=== PATIENT | female | born 1995 | race Caucasian/White ===

== ENCOUNTER 2022-09-06 17:38 | Inpatient (IN) | payer MEDICAID, SELFPAY ==
[2022-09-06] VITALS (22 sets, daily range): BP systolic 94–123; BP diastolic 56–75; PULSE 73–109; RESP 13–21; TEMP 36.4–37; O2SAT 96–100
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
[2022-09-06 18:26] LABS: Bilirubin Negative (Negative); Blood Negative (Negative); Clarity Clear (Clear); Glucose Negative (Negative); Ketones Negative (Negative); Leukocyte Esterase Negative (Negative); Nitrite Negative (Negative); Specific Gravity <= 1.005 (1.005-1.025); Urobilinogen 0.2 EU/dL (Up TO 0.2); pH 5.5 (5-8)
[2022-09-06 18:40] LABS: *AMPHETAMINES SCREEN URINE Negative (Negative); *BARBITURATES SCREEN URINE Negative (Negative); *BENZODIAZEPINES SCREEN URINE Positive (Negative); Cannabinoids THC Negative (Negative); Cocaine Screen,Urine Negative (Negative); METHADONE URINE SCREEN Negative (Negative); OPIATES URINE SCREEN Negative (Negative); Tricyclic Antidepressants Negative (Negative)
[2022-09-06] MEDS: Normal Saline 1,000 ML 1000 ML IV (18:45)
[2022-09-06 18:53] LABS: Abs Immature Grans 0.06 10^3/uL (0.0-0.06); Absolute Basophil Count 0.09 10^3/uL (0.0-0.2); Absolute Eosinophil Count 0.04 10^3/uL (0.0-0.7); Absolute Lymphocyte Count 2.19 10^3/uL (1.2-3.4); Absolute Monocyte Count 0.48 10^3/uL (0.1-0.8); Absolute Neutrophil Count 4.51 10^3/uL (1.2-6.7); Basophils % 1.2; Eosinophils % 0.5; HCT 40.2 % (36.0-46.0); HGB 13.3 g/dL (11.2-15.7); Immature Grans % 0.8; Lymphocytes % 29.7; MCH 33.3 pg (27.0-33.0); MCHC 33.1 % (32.0-36.0); MCV 101 fL (80-95); MPV 8.5 fL (8.0-11.0); Monocytes % 6.5; Neutrophils % 61.3; Platelet Count 253 10^3/uL (130-400); RDW 12.4 % (11.7-14.6); RDW-SD 46.5 fL; WBC 7.37 10^3/uL (4.4-10.8)
[2022-09-06 19:06] LABS: Lipase 158 U/L (73-393)
[2022-09-06 19:20] LABS: ALT 18 U/L (14-59); AST 32 U/L (15-37); Albumin 4.6 g/dL (3.4-5.0); Alkaline Phosphatase 81 U/L (46-116); Anion Gap 7.2 mmol/L (3-11); BUN 5 mg/dL (7-18); Bilirubin, Total 0.2 mg/dL (0.2-1.0); CO2 28.8 mmol/L (21.0-32.0); CREATININE 0.6 mg/dL (0.55-1.02); Calcium 9.6 mg/dL (8.5-10.1); Chloride 107 mmol/L (98-107); ETHANOL BLOOD 259.8 mg/dL (<10); Estimated GFR 124.53 (mL/min/1.73m2); Glucose 89 mg/dL (74-106); Potassium 3.8 mmol/L (3.5-5.1); Sodium 143 mmol/L (136-145); TSH (W/Ref FT4) 2.35 uIU/mL (0.36-3.74); Total Protein 8.6 g/dL (6.4-8.2)
[2022-09-06 19:32] LABS: Salicylate < 2.8 mg/dL (<2.8)
[2022-09-06 19:33] LABS: Acetaminophen < 2 ug/mL (10-30)
[2022-09-06 19:56] LABS: Source Nasal/Nares
[2022-09-06 20:26] LABS: COVID-19 PCR Negative (Negative)
[2022-09-06] MEDS: PHENobarbital 100 MG in Normal Saline 50 ML IVPB (20:52)
--- NOTE | 2022-09-06 22:27 | W.PM.HP.N ---
Date of service: 09/06/22 Time of Service: 22:28 Assessment and Plan Assessment and plan (1) Alcohol withdrawal: Status: Acute Assessment and plan: Hailey had benzodiazepines from Librium taper given last week but hasn't taken in several days. She describes a history of significant withdrawal syndrome and possible DTs. Given this, she has been started on IV phenobarbitol protocol. She looked confortable at the time of my assessment. Monitor and dose per protocol. (2) Alcohol use disorder, severe, dependence: Status: Acute Assessment and plan: Hailey would like to persue treatment after withdrawal is treated. She was considering [facility] but also the IOP program at [facility]. We did discuss medical options as well. Should plan for transition once out of acute withdrawal. (3) Suicidal ideation: Status: Acute Assessment and plan: SI reported on admission but she clearly denies this in my interview with her. Even so, I think crisis team assessment is appropriate once she is medically cleared. (4) Mood disorder: Status: Acute Assessment and plan: She is seeing psychiatric provider through [facility]. I'm not sure if diagnosis is Bipolar or unipolar depression with anxiety. Complicated by alcohol use disorder. continue lamotrigine and SSIR, monitor for rash (has only been a few days on the medication) (5) Back pain: Status: Acute Assessment and plan: Hailey has back pain and abdominal tenderness. CT from the pat week was reassuring. I don't think the renal stone is what is causing her symptoms as small and not obstruting. Given toradol x 1, can use ibuprofen prn starting tomorrow. LFTs and lipase reassuring. (6) Migraine with aura: Status: Acute Assessment and plan: Continue magnesium daily and sumatriptan prn if toradol not working. (7) GERD (gastroesophageal reflux disease): Status: Chronic Assessment and plan: Conitnue PPI, work on EtOH. (8) Smoker: Status: Acute Assessment and plan: NRT prn for now (9) DVT prophylaxis: Status: Acute Assessment and plan: LMWH (10) Discharge planning issues: Status: Acute Assessment and plan: Hailey is in the ICU for phenobarbitol protocol with monitoring. MH evaluation when medically clear. History of Present Illness History of Present Illness Chief Complaint: alcohol use, suicidal ideation Narrative: 27 yo F with history of severe alcohol use disorder, history of alcoholic pancreatitis, depression vs bipolar affective disorder who presented with local law enforcement today after being served with a warrant for poor judgement and insight, self harm, concern for suicidal ideation. She reports a history of chronic heavy alcohol use for the past 4 years with mulpitle episodes of medical detoxification. She was seen 6 days ago in the [facility] [place] ED for abdominal pain and alcohol intoxication. She had CT A/P that was reassuring other than a 2mm non-obstructive stone in the left kidney. She was given a chlorodiazapoxide/Librium taper for home use with plan to go to [facility], but had to postpone that and felt like the Librium made her not herself and more angry and irritable. She started drinking again yesterday and had 9x24oz beers. Today she has 3x24oz and 3x12oz beers before being brought in. Currently, she endorses depression but denies suicidal ideation. She states she burned herself because she was upset, but didn't want to end her life. She states she is taking fluoxetine as well as a new Rx for lamotrigine, which she feels like is helping. She complains of a migraine headache that is worst behind her left eye but extends to bilateral nuchal area. She also has low back pain, first indicating her left, then stating her right hurt more. Sumitriptan or toradol usually work for her. Review of Systems Constitutional Constitutional: Denies anorexia, Denies chills, Denies fever(s), Reports lethargy and Denies weakness Eyes Eyes: Denies change in vision, Denies irritation, Denies loss of vision and Reports photophobia ENT Ears, Nose, Mouth, and Throat: Denies dizziness, Denies nasal congestion, Denies nasal discharge and Denies sore throat Comments: recent cold, recovered Cardiovascular Cardiovascular: Denies chest pain, Denies leg edema, Denies palpitations and Denies dyspnea Respiratory Respiratory: Denies excessive phlegm production, Denies dyspnea and Denies wheezing Gastrointestinal Gastrointestinal: Reports abdominal pain, Denies melena, Denies hematochezia, Reports heartburn, Denies diarrhea, Denies nausea and Denies vomiting Genitourinary Genitourinary: Denies hematuria, Denies dysuria and Denies urinary incontinence Musculoskeletal Musculoskeletal: Reports arthralgias (recent left shoulder dyslocation, no pain now) and Denies muscle weakness Integumentary/Breasts Skin/Breast: Denies rash and Denies skin ulcer Neurologic Neurologic: Denies confusion, Denies dizziness, Denies loss of vision, Denies sensory deficit and Denies weakness Psychiatric Psychiatric: Denies confusion, Reports depression, Reports panic attacks and Denies hallucinations (history of hallucinations with withdrawal, not now) Endocrine Endocrine: Denies palpitations Hematologic/Lymphatic Hematologic/Lymphatic: Denies easy bleeding Allergic/Immunologic Allergic/Immunologic: Denies wheezing PFSH All Active Problems (Updated 09/06/22 @ 23:03 by Zeke Borjas) Smoker (Acute) Migraine with aura (Acute) Discharge planning issues (Acute) GERD (gastroesophageal reflux disease) (Chronic) DVT prophylaxis (Acute) Back pain (Acute) Left nephrolithiasis (Acute) Mood disorder (Acute) Alcohol use disorder, severe, dependence (Acute) Alcohol withdrawal (Acute) Suicidal ideation (Acute) Medical History (Updated 09/06/22 @ 23:03 by Zeke Borjas) History of pancreatitis Surgical History (Updated 09/06/22 @ 22:47 by Zeke Borjas) History of therapeutic Family History (Updated 09/06/22 @ 22:45 by Zeke Borjas) Father Alcohol use disorder Sister Alcohol use disorder Mother Depression bipolar Social History (Updated 09/06/22 @ 23:59 by Zeke Borjas) Smoking/Tobacco Use Status: Current every day Tobacco Type: cigarettes Quit status: not considering quitting Smoking risk assessment performed?: Yes Alcohol Intake: current Substance use type: does not use Household members: family Education Level: high school Pets and animals: Yes Pets and animals: cat(s) Sexually active: No Additional Social history: Lives with Mother in [place], [place]. Recently ended relationship with [facility]. Meds Allergies and Home Medications Allergies Allergy/AdvReac Type Severity Reaction Status Date / Time sulfamethoxazole Allergy Intermediate Skin Rash Unverified 09/06/22 19:29 [From Bactrim] trimethoprim [From Bactrim] Allergy Intermediate Skin Rash Unverified 09/06/22 19:29 Home Medications Medication Instructions Recorded Confirmed Type hydroxyzine HCl 25 mg tablet 25 mg PO 1XD 09/06/22 09/06/22 History lamotrigine 25 mg tablet 25 tab PO 1XD 09/06/22 09/06/22 History magnesium gluconate 27 mg 500 mg PO 1XD 09/06/22 09/06/22 History magnesium (500 mg) tablet melatonin 5 mg tablet 5 mg PO 1XD 09/06/22 09/06/22 History omeprazole 40 mg capsule,delayed 40 mg PO 1XD 09/06/22 09/06/22 History release sumatriptan succinate 100 mg tablet 100 tab PO 1XD 09/06/22 09/06/22 History Exam Narrative Exam Narrative: GEN: Alert and oriented, pleasant and cooperative, history jumps around, somewhat tangential. No acute distress at rest. HEENT: Head atraumatic except for bandaid on chin. Conjunctiva clear, no icterus. PEERL, EOMI. no rhinorrhea. MMM, OP benign. Neck is supple with no masses or lymphadenopathy, trachea midline LUNGS: CTAB with normal effort CV: RRR with no murmurs, gallops, or rubs. ABD: +BS, soft, ND, diffulse moderate abdominal tenderness most notable in RUQ and LLQ. no masses. EXT: no cyanosis, clubbing, or edema, legs not tender. MSK: No joint redness or swelling. pain in low back with hip exam. Nl ROM shoulders. NEURO: CN 2-12 grossly intact. Normal movement of 4 extremities. Normal speech and coordination, gait stable, no current tremor SKIN: No rashes other that round pink patches left side of neck and dorsal left hand (states cigarrette [place] self inflicted. No open wounds. PSYCH: normal mood and affect. Thought process as above. Results Labs Result diagrams: 09/06/22 18:45 09/06/22 18:45 Labs: Laboratory Results - last 24 hr 09/06/22 09/06/22 09/06/22 18:20 18:20 18:45 WBC RBC Hgb Hct MCV MCH MCHC RDW Plt Count MPV Immature Gran % Neutrophils % Lymphocytes % Monocytes % Eosinophils % Basophils % Nucleated RBC % Absolute Neutrophils Absolute Lymphocytes Absolute Monocytes Absolute Eosinophils Absolute Basophils Sodium 143 Potassium 3.8 Chloride 107 Carbon Dioxide 28.8 Anion Gap 7.2 BUN 5 L Creatinine 0.6 Est GFR (CKD-EPI 2020) 124.53 Glucose 89 Calcium 9.6 Total Bilirubin 0.2 AST 32 ALT 18 Alkaline Phosphatase 81 Total Protein 8.6 H Albumin 4.6 Lipase TSH 2.35 Urine Color Yellow Urine Clarity Clear Urine pH 5.5 Ur Specific [place] <= 1.005 Urine Protein Negative Urine Ketones Negative Urine Blood Negative Urine Nitrite Negative Urine Bilirubin Negative Urine Urobilinogen 0.2 Ur Leukocyte Esterase Negative Urine Glucose Negative Salicylates Urine Opiates Screen Negative Urine Methadone Screen Negative Acetaminophen Ur Barbiturates Screen Negative Ur Tricyclics Screen Negative Ur Amphetamines Screen Negative U Benzodiazepines Scrn Positive A Urine Cocaine Screen Negative Ur THC Screen Negative Ethyl Alcohol 259.8 H COVID-19 Source SARS-CoV-2 (PCR) 09/06/22 09/06/22 09/06/22 18:45 18:45 18:45 WBC 7.37 RBC 4.00 Hgb 13.3 Hct 40.2 MCV 101 H MCH 33.3 H MCHC 33.1 RDW 12.4 Plt Count 253 MPV 8.5 Immature Gran % 0.8 Neutrophils % 61.3 Lymphocytes % 29.7 Monocytes % 6.5 Eosinophils % 0.5 Basophils % 1.2 Nucleated RBC % 0.0 Absolute Neutrophils 4.51 Absolute Lymphocytes 2.19 Absolute Monocytes 0.48 Absolute Eosinophils 0.04 Absolute Basophils 0.09 Sodium Potassium Chloride Carbon Dioxide Anion Gap BUN Creatinine Est GFR (CKD-EPI 2020) Glucose Calcium Total Bilirubin AST ALT Alkaline Phosphatase Total Protein Albumin Lipase 158 TSH Urine Color Urine Clarity Urine pH Ur Specific [place] Urine Protein Urine Ketones Urine Blood Urine Nitrite Urine Bilirubin Urine Urobilinogen Ur Leukocyte Esterase Urine Glucose Salicylates < 2.8 Urine Opiates Screen Urine Methadone Screen Acetaminophen < 2 Ur Barbiturates Screen Ur Tricyclics Screen Ur Amphetamines Screen U Benzodiazepines Scrn Urine Cocaine Screen Ur THC Screen Ethyl Alcohol COVID-19 Source SARS-CoV-2 (PCR) 09/06/22 19:52 WBC RBC Hgb Hct MCV MCH MCHC RDW Plt Count MPV Immature Gran % Neutrophils % Lymphocytes % Monocytes % Eosinophils % Basophils % Nucleated RBC % Absolute Neutrophils Absolute Lymphocytes Absolute Monocytes Absolute Eosinophils Absolute Basophils Sodium Potassium Chloride Carbon Dioxide Anion Gap BUN Creatinine Est GFR (CKD-EPI 2020) Glucose Calcium Total Bilirubin AST ALT Alkaline Phosphatase Total Protein Albumin Lipase TSH Urine Color Urine Clarity Urine pH Ur Specific [place] Urine Protein Urine Ketones Urine Blood Urine Nitrite Urine Bilirubin Urine Urobilinogen Ur Leukocyte Esterase Urine Glucose Salicylates Urine Opiates Screen Urine Methadone Screen Acetaminophen Ur Barbiturates Screen Ur Tricyclics Screen Ur Amphetamines Screen U Benzodiazepines Scrn Urine Cocaine Screen Ur THC Screen Ethyl Alcohol COVID-19 Source Nasal/Nares SARS-CoV-2 (PCR) Negative Last Vital Signs Temp 37 C 09/06/22 21:40 Pulse 99 H 09/06/22 20:47 Resp 18 09/06/22 20:47 BP 94/56 L 09/06/22 20:47 Pulse Ox 99 09/06/22 21:40 PAWSS Have you Been Recently Intoxicated or Drunk Within the Last 30 days?: Yes Have you Ever Experienced Previous Episodes of Alcohol Withdrawal?: Yes Have you ever Experienced Withdrawal Seizures?: Yes Have you ever Experienced Delirium Tremens(DT)s?: Yes Have you ever undergone Alcohol Rehabilitation Treatment (i.e, inpt ot outpatient treatment programs)?: Yes Have you ever Experienced Blackouts?: Yes Have you ever Combined Alcohol with other Downers within the last 90 days?: No Have you ever Combined Alcohol with any other Substance of Abuse during the last 90 days?: No Positive Blood Alcohol level on Presentation? [PCS.BAL]: Yes Evidence of Increased Autonomic Activity (i.e. HR>120, tremor, sweating, agitation, nausea)?: No Result: 7 Time Spent Time spent with Patient: 55-74 minutes Time was spent: preparing to see the patient(eg.review tests), obtaining and/or reviewing separately otained hiistory and counseling the patient
[2022-09-06] MEDS: Ketorolac 30 MG/ML VIAL IVP (23:08)
[2022-09-07] VITALS (65 sets, daily range): BP systolic 81–110; BP diastolic 48–68; PULSE 70–115; RESP 10–28; TEMP 36–36.6; O2SAT 95–100
[2022-09-07] MEDS: Melatonin 3 MG TAB PO
[2022-09-07] MEDS: Enoxaparin 40 MG/0.4 ML SYR SC
[2022-09-07] MEDS: Ondansetron O.D.T. 4 MG TABEF PO
[2022-09-07] MEDS: SUMAtriptan 25 MG TAB (00:30)
[2022-09-07] MEDS: Multivitamin TAB 1 TAB PO (08:57)
[2022-09-07] MEDS: hydrOXYzine HCL 25 MG TAB PO (08:57)
[2022-09-07] MEDS: FLUoxetine 20 MG CAP 40 MG PO (08:57)
[2022-09-07] MEDS: lamoTRIgine 25 MG TAB PO (08:57)
[2022-09-07] MEDS: Magnesium Gluconate 500 MG TAB PO (08:57)
[2022-09-07] MEDS: Omeprazole 20 MG CAPCR 40 MG PO (08:57)
[2022-09-07] MEDS: Ketorolac 30 MG/ML VIAL IVP (09:00)
[2022-09-07] MEDS: Folic Acid 1 MG TAB PO (09:01)
[2022-09-07] MEDS: Famotidine 20 MG TAB 40 MG PO (09:01)
[2022-09-07] MEDS: Thiamine 100 MG TAB PO (09:05)
--- NOTE | 2022-09-07 10:10 | INITIAL_ITS ---
- If Service Date Differs Date of service: 09/07/22 Time of Service: 10:11 Care Management Initial Assess REASON FOR HOSPITALIZATION:: Alcohol withdrawal, SI PAST MEDICAL HISTORY/PAST SURGICAL HISTORY:: All Active Problems. Smoker (Acute). Migraine with aura (Acute). Discharge planning issues (Acute). GERD (gastroesophageal reflux disease) (Chronic). DVT prophylaxis (Acute). Back pain (Acute). Left nephrolithiasis (Acute). Mood disorder (Acute). Alcohol use disorder, severe, dependence (Acute). Alcohol withdrawal (Acute). Suicidal ideation (Acute). Medical History. History of pancreatitis. Surgical History. History of therapeutic PREVIOUS FUNCTIONAL STATUS/SOCIAL/FAMILY SUPPORTS:: Hailey lives in [place], [place], in an apartment with her mother. 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 She is connected with a [facility] RN, Marcela Peterson, as well as a oil recovery unit operator, Sania. She is independent at baseline. CURRENT FUNCTIONAL STATUS:: Hailey was lying in bed when GRISEL met with her. Per MD, she has been medically cleared, and is ready to be screened by [facility] prior to making a plan for discharge. Hailey stated that she didn't know why the police brought her to the hospital against her will. GRISEL explained the process of an EE warrant, for emergency evaluation. Hailey was upset at the idea that she might have to stay at [facility] longer, as she is looking forward to returning home. She explained that she understands that she has a problem with alcohol, but she is not suicidal. She then reported all of the support she has in the community, including Sania (oil recovery unit operator); Marcela Peterson (CI RN); Venkata Dominguez (LABORATORY MONITOR, [facility]); Clair Orozco (clothing designer, [facility]); and her PCP, Natasha Hearn at [facility]. Hailey was screened by ADALI Nunez, who developed a safety plan for her to return to the community. GRISEL met with Hailey again to discuss her discharge. She stated that she is comfortable with the plan, and that she may need help getting a ride home. GRISEL encouraged her to call family/friends, as she lives out of the area. Her mother and sister refused to pick her up. GRISEL attempted to call both her mother, Rina, and her sister, Gerda, to discuss her discharge, with no answer. CM left a voicemail for Rina who has not yet returned the call. CM called [facility] and requested a ride. CM will continue to follow. ADVANCE DIRECTIVES:: Not on file. Has patient been provided with info about the portal/API?: Yes Did the patient sign up for the portal?: No CODE STATUS:: Full Code INSURANCE COVERAGE / FINANCIAL ISSUES:: [employer] CURRENT HOME/COMMUNITY SERVICES/EQUIPMENT:: Per report, Hailey is connected with a oil recovery unit operator who is local to her, as well as a therapist. PRIMARY CARE PHYSICIAN:: Natasha Hearn, [facility] POTENTIAL DISCHARGE NEEDS:: Screening by [facility], potential second certification, as Hailey was brought to [facility] on an EE warrant by police. PATIENT/FAMILY EDUCATION NEEDS:: Review discharge instructions and limitations, discussion of self care including ask me three, and connection to MH supports. ANTICIPATED BARRIERS TO DISCHARGE:: Hailey arrived on an EE warrant, therefore she will need to be cleared by [facility] prior to returning home. TRANSPORTATION:: to be determined by disposition. PLAN:: Hailey is medically cleared, and will need to be screened by [facility] prior to discharge. She was brought in on an EE warrant, and it will need to be determined if she meets criteria for an involuntary hold vs release to the community with MH supports. Her transportation will depend on disposition. She will follow up with her PCP and discharge plan of care.
--- NOTE | 2022-09-07 10:20 | W.PM.DS.N ---
Date of service: 09/07/22 Time of Service: 10:21 DS: Diagnosis Discharge Diagnosis (1) Alcohol withdrawal: Status: Acute (2) Alcohol use disorder, severe, dependence: Status: Acute (3) Suicidal ideation: Status: Acute (4) Mood disorder: Status: Acute (5) Back pain: Status: Acute (6) Migraine with aura: Status: Acute (7) GERD (gastroesophageal reflux disease): Status: Chronic (8) Smoker: Status: Acute (9) DVT prophylaxis: Status: Acute (10) Discharge planning issues: Status: Acute Discharge Plan Disposition Patient Disposition: Home Condition: Good Discharge Details Reason For Visit: Alcohol Withdrawal,SI Admit Date/Time: 09/06/22 20:26 Admit Provider: Zeke Borjas Attending Provider: Zeke Borjas Primary Care Provider: Unknown,Unknown Hospital Course Hospital Course: 27 yo F with history of severe alcohol use disorder, history of alcoholic pancreatitis, depression vs bipolar affective disorder who presented with local law enforcement today after being served with a warrant for poor judgement and insight, self harm, concern for suicidal ideation.? She reports a history of chronic heavy alcohol use for the past 4 years with mulpitle episodes of medical detoxification.? She was seen 6 days ago in the [facility] for abdominal pain and alcohol intoxication.? She had CT A/P that was reassuring other than a 2mm non-obstructive stone in the left kidney.? She was given a chlorodiazapoxide/Librium taper for home use with plan to go to [facility], but had to postpone that and felt like the Librium made her not herself and more angry and irritable.? She started drinking again the day prior to admission and had 9x24oz beers.? Today she had 3x24oz and 3x12oz beers before being brought in. She endorsed depression but denied suicidal ideation.? She stated she burned herself because she was upset, but didn't want to end her life.? She stated she is taking fluoxetine as well as a new Rx for lamotrigine, which she feels like is helping.? She complains of a migraine headache that is worst behind her left eye but extends to bilateral nuchal area.? She also has low back pain, first indicating her left, then stating her right hurt more.? Sumitriptan or toradol usually work for her and those were administered. Her lab values were unremarkable other than an elevated serum alcohol level of 259.8. She was given a 100mg IV phenobarbital dose and placed on CIWA monitoring with prn phenobarbital 130mg. She received no prn doses of phenobarbital and the following AM was feeling much better. She still endorsed some bilateral flank area discomfort and an upset stomach. She did eat well w/o nausea or vomitting. Her headache had improved but then returned; another dose of toradol given. Mental health evaluated patient and she has been cleared to return home. Medically cleared as well. Safety plan arranged by [facility]. Continue with plans to meet with disaster recovery manager and with mental health provider(s). Home Meds and New Rx's Prescriptions: New multivitamin [Multiple Vitamins] Tablet 1 tab PO QAM Qty: 0 0RF fluoxetine 20 mg Capsule 40 mg PO DAILY Qty: 0 0RF thiamine mononitrate (vit B1) [Vitamin B-1 (mononitrate)] 100 mg Tablet 100 mg PO QAM Qty: 0 0RF lorazepam 0.5 mg tablet See Rx Instructions .ROUTE .COMPLEX PRNQty: 26 0RF Rx Instructions: 2 tabs TID for 2 days, then 2 tabs BID for 2 days, then 1 tab BID for 2 days, then 1 tab daily for 2 days Continued sumatriptan succinate 100 mg tablet 100 tab PO 1XD Label Comments: TAKE 1 TABLET BY MOUTH AT FIRST SIGN OF MIGRAINE, MAY REPEAT DOSE IN 2 HOURS IF NEEDED. MAX OF TWO TABLETS DAILY omeprazole 40 mg capsule,delayed release(DR/EC) 40 mg PO 1XD Label Comments: TAKE ONE CAPSULE BY MOUTH EVERY DAY NEEDED FOR HEARTBURN lamotrigine 25 mg tablet 25 tab PO 1XD Label Comments: TAKE ONE TABLET BY MOUTH EVERY DAY hydroxyzine HCl 25 mg tablet 25 mg PO 1XD Label Comments: TAKE ONE TABLET BY MOUTH THREE TIMES A DAY NEEDED FOR ANXIETY magnesium gluconate 27 mg magnesium (500 mg) tablet 500 mg PO 1XD Label Comments: Take 1 tablet by mouth once a day melatonin 5 mg tablet 5 mg PO 1XD Label Comments: TAKE ONE TABLET BY MOUTH EVERY EVENING NEEDED FOR SLEEP Discharge Instructions Activity:: Activity as Tolerated Equipment/Supplies:: No Equipment Needed Diet:: As Tolerated Discharge Orders Discharge Orders: Discharge Order (Routine); Ordered 09/07/22 Ordered By: Nahun Finley DS: Summary Time Spent with Patient providing and/or coordinating discharge services: Greater than 30 minutes Status at Discharge Functional status at discharge: independent ambulation Overall status at discharge: patient is progressing back to baseline Mental Status: mental status grossly normal Speech and Movement: speech and movement normal Mood: congruent mood Affect: normal affect (normal to mildly blunted) Exam Narrative Exam Narrative: GEN: Alert and oriented, pleasant and cooperative, NAD. HEENT: Head atraumatic except for bandaid on chin. Conjunctiva clear, no icterus. MMM LUNGS: CTAB with normal effort CV: RRR with no murmurs, gallops, or rubs. ABD: +BS, soft, ND, diffulse mild abdominal tenderness most notable in RUQ and LLQ. no masses. EXT: no edema, legs not tender. NEURO: Normal movement of 4 extremities. Normal speech and coordination SKIN: No rashes other that round pink patches left side of neck and dorsal left hand (states cigarrette [place] self inflicted. No open wounds. PSYCH: Normal to somewhat blunted affect. Thought process normal. Psych Mental Status: mental status grossly normal Speech and Movement: speech and movement normal Mood: congruent mood Affect: normal affect (normal to mildly blunted) DS: Data Vitals/I&O Vitals and I&O: Vital Signs Temperature 36.0 C L 09/07/22 08:06 Temperature Source Skin 09/07/22 08:06 Pulse 75 09/07/22 09:00 Pulse 77 09/07/22 09:00 Respiratory Rate 14 09/07/22 09:00 Respiratory Effort Non-Labored 09/07/22 08:00 Respiratory Depth Normal 09/07/22 08:00 Respiratory Pattern Normal 09/07/22 08:00 Blood Pressure 102/57 L 09/07/22 09:00 Blood Pressure Mean 67 09/07/22 09:00 Blood Pressure Position Supine 09/07/22 08:00 Pulse Oximetry 100 09/07/22 09:00 Oxygen Delivery Method Room Air 09/07/22 08:06 Oxygen Flow Rate 0 09/07/22 08:06 Pain Level 8 09/07/22 08:06 Intake & Output 09/06/22 09/06/22 09/07/22 11:59 23:59 11:59 Intake Total 1060 / 1060 200 / 200 Balance 1060 / 1060 200 / 200 Weight 53.2 kg Intake: IV 1060 / 1060 Oral 200 / 200 Other: Urine Appearance Clear Urine Odor None Comment unmeasured output mixed with stool pt voiding in toilet, no issues noted Stool Size Small Stool Characteristics Soft Brown Voiding Methods Toilet Data Completed and Pending Labs on day of discharge: Labs from last 24 hours 09/06/22 09/06/22 09/06/22 19:52 18:45 18:45 WBC 7.37 RBC 4.00 Hgb 13.3 Hct 40.2 MCV 101 H MCH 33.3 H MCHC 33.1 RDW 12.4 Plt Count 253 MPV 8.5 Immature Gran % 0.8 Neutrophils % 61.3 Lymphocytes % 29.7 Monocytes % 6.5 Eosinophils % 0.5 Basophils % 1.2 Nucleated RBC % 0.0 Absolute Neutrophils 4.51 Absolute Lymphocytes 2.19 Absolute Monocytes 0.48 Absolute Eosinophils 0.04 Absolute Basophils 0.09 Sodium Potassium Chloride Carbon Dioxide Anion Gap BUN Creatinine Est GFR (CKD-EPI 2020) Glucose Calcium Total Bilirubin AST ALT Alkaline Phosphatase Total Protein Albumin Lipase 158 TSH Urine Color Urine Clarity Urine pH Ur Specific Mcdade Urine Protein Urine Ketones Urine Blood Urine Nitrite Urine Bilirubin Urine Urobilinogen Ur Leukocyte Esterase Urine Glucose Salicylates Urine Opiates Screen Urine Methadone Screen Acetaminophen Ur Barbiturates Screen Ur Tricyclics Screen Ur Amphetamines Screen U Benzodiazepines Scrn Urine Cocaine Screen Ur THC Screen Ethyl Alcohol COVID-19 Source Nasal/Nares SARS-CoV-2 (PCR) Negative 09/06/22 09/06/22 09/06/22 18:45 18:45 18:20 WBC RBC Hgb Hct MCV MCH MCHC RDW Plt Count MPV Immature Gran % Neutrophils % Lymphocytes % Monocytes % Eosinophils % Basophils % Nucleated RBC % Absolute Neutrophils Absolute Lymphocytes Absolute Monocytes Absolute Eosinophils Absolute Basophils Sodium 143 Potassium 3.8 Chloride 107 Carbon Dioxide 28.8 Anion Gap 7.2 BUN 5 L Creatinine 0.6 Est GFR (CKD-EPI 2020) 124.53 Glucose 89 Calcium 9.6 Total Bilirubin 0.2 AST 32 ALT 18 Alkaline Phosphatase 81 Total Protein 8.6 H Albumin 4.6 Lipase TSH 2.35 Urine Color Urine Clarity Urine pH Ur Specific Mcdade Urine Protein Urine Ketones Urine Blood Urine Nitrite Urine Bilirubin Urine Urobilinogen Ur Leukocyte Esterase Urine Glucose Salicylates < 2.8 Urine Opiates Screen Negative Urine Methadone Screen Negative Acetaminophen < 2 Ur Barbiturates Screen Negative Ur Tricyclics Screen Negative Ur Amphetamines Screen Negative U Benzodiazepines Scrn Positive A Urine Cocaine Screen Negative Ur THC Screen Negative Ethyl Alcohol 259.8 H COVID-19 Source SARS-CoV-2 (PCR) 09/06/22 18:20 WBC RBC Hgb Hct MCV MCH MCHC RDW Plt Count MPV Immature Gran % Neutrophils % Lymphocytes % Monocytes % Eosinophils % Basophils % Nucleated RBC % Absolute Neutrophils Absolute Lymphocytes Absolute Monocytes Absolute Eosinophils Absolute Basophils Sodium Potassium Chloride Carbon Dioxide Anion Gap BUN Creatinine Est GFR (CKD-EPI 2020) Glucose Calcium Total Bilirubin AST ALT Alkaline Phosphatase Total Protein Albumin Lipase TSH Urine Color Yellow Urine Clarity Clear Urine pH 5.5 Ur Specific Mcdade <= 1.005 Urine Protein Negative Urine Ketones Negative Urine Blood Negative Urine Nitrite Negative Urine Bilirubin Negative Urine Urobilinogen 0.2 Ur Leukocyte Esterase Negative Urine Glucose Negative Salicylates Urine Opiates Screen Urine Methadone Screen Acetaminophen Ur Barbiturates Screen Ur Tricyclics Screen Ur Amphetamines Screen U Benzodiazepines Scrn Urine Cocaine Screen Ur THC Screen Ethyl Alcohol COVID-19 Source SARS-CoV-2 (PCR) PFSH All Active Problems Smoker (Acute) Migraine with aura (Acute) Discharge planning issues (Acute) GERD (gastroesophageal reflux disease) (Chronic) DVT prophylaxis (Acute) Back pain (Acute) Left nephrolithiasis (Acute) Mood disorder (Acute) Alcohol use disorder, severe, dependence (Acute) Alcohol withdrawal (Acute) Suicidal ideation (Acute) Medical History History of pancreatitis Surgical History History of therapeutic Family History Father Alcohol use disorder Sister Alcohol use disorder Mother Depression bipolar Social History Smoking/Tobacco Use Status: Current every day Tobacco Type: cigarettes Quit status: not considering quitting Smoking risk assessment performed?: Yes Alcohol Intake: current Substance use type: does not use Household members: family Education Level: high school Pets and animals: Yes Pets and animals: cat(s) Sexually active: No Additional Social history: Lives with Mother in [place], [place]. Recently ended relationship with yoly. Time Spent with Patient Time Spent with Patient: <45 minutes Time was spent: ordering medications,tests, procedures, indepentently interpreting results, counseling the patient and care coordination
[2022-09-07] MEDS: Acetaminophen 325 MG TAB 650 MG PO (12:35)
--- NOTE | 2022-09-07 13:54 | PDOC.MHCN ---
Date of service: 09/07/22 Time of Service: 13:42 PHQ-9 Over the last 2 weeks, how often have you been bothered by any of the following problems? 1. Little interest or pleasure in doing things: several days 2. Feeling down, depressed, or hopeless: several days 3. Trouble falling or staying asleep, or sleeping too much: nearly every day 4. Feeling tired or having little energy: several days 5. Poor appetite or overeating: several days 6. Feeling bad about yourself - or that you are a failure or have let yourself and your family down: several days 7. Trouble concentrating on things, such as reading the newspaper or watching television: several days 8. Moving or speaking so slowly that other people could have noticed? - Or the opposite - being so fidgety or restless that you have been moving around a lot more than usual: not at all 9. Thoughts that you would be better off or of hurting yourself in some way: not at all Total score: 9 If you checked off any problems, how difficult have these problems made it for you to do your work, take care of things at home, or get along with other people?: somewhat difficult Source: Developed by Drs. Marcello Cristobal, Sondra Grajeda, Anthony Ventura and colleagues, with an educational thierry from [employer]. Suicide Severity Rate CSSRS2 Have you been thinking about how you might do this?: No Have you had these thoughts and had some intention of acting on them?: No CSSRS4 Was this within the past three months?: No Screening Score Total Score: 0 Screening: Negative Mental Health Emergency Note Release HS release signed:: No Reason for Visit Hailey was brought to [facility] on a mental health warrant by a clinician at [facility]. The warrant includes information about Hailey's substance use and Hailey was brought in while intoxicated. In the last 2 weeks has the pt presented for ES prior to today?: Unknown Client Information Client is: New Well Housed: Yes Non Suicidal Self Injury History: yes, Angella reports she sometimes cuts herself to feel a sense of relief, she last cut herself in May of 2022. Safety Risk/Harm to Self or Others Current Ideation to Harm Self or Others: No Risk: Does risk to harm exist?: No Risk: N/A Duty to warn indicated: No Asssessment/Mental Status Appearance: Disheveled Attitude: Cooperative Behavior: Unremarkable Speech: Normal Affect: Cogruent with mood Mood: Anxious Thought process: Goal directed Hallucinations: No evidence Delusions: No evidence Attention: Unremarkable Perception: Not impaired Orientation: Fully orientated Memory: Intact Insight: Fair Judgement: Fair Neurovegetative Symptoms Sleep: Increase (Angella reports an increase in sleep due to the hospital providing sleeping medications.) Appetitie: No change Interests: No change Energy: No change Libido: Not applicable Substance Use: ETOH dependence Do you use nicotine?: Yes Have you used substances in the last 7 days?: yes, Angella came to [facility] intoxicated due to alcohol and reports drinking prior to yesterday as well. Additional Issues: Assaultive/Threatening Behavior: No Medical Concerns: No Client engaged in active self harm w/weapon: No Threatening to run away: No Child reported abuse/neglect: No Voluntarily presenting for services: No Domestic violence is a concern: No Extreme Psychosis or extreme behavior is present: No Impression Hailey came to [facility] on a warrant from the [facility]. Hailey presents today with fair insight and judgment, explaining to this short story writer why she is at [facility] and what she is doing to become sober. Hailey is goal directed, futuristic, and hopeful for her sobriety. 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 Hailey is already well connected with services; she has a therapist through [facility], a care transitions manager through [facility], a rehab student success coach, and is on the wait list for more services. Hailey is in need of substance treatment/resources but reports her plan to begin them on Wednesday. Resources Reosurces reviewed and given:: [id number] Plan/Disposition Recommended Disposition: Community resources and Other (Follow up with [facility], begin outpatient program with [facility].). Plan: Hailey reported to this short story writer she has a consultation on Wednesday to begin an intensive outpatient program for substance treatment through [facility]. Hailey is looking forward to beginning this program and has hopes to become her old self again. Hailey will be discharged on a safety plan with the intention to enroll in this program, remain sober, and continue services with the [facility]. Person reported agreement to plan: Yes Reports/communication Outcome discussed with: ED/Personnel
[2022-09-07] MEDS: SUMAtriptan 50 MG TAB 100 MG PO (15:06)
--- NOTE | 2022-09-07 16:02 | PDOC.CMDIS ---
- If Service Date Differs Date of service: 09/07/22 Time of Service: 16:02 LACE Index Scoring Tool - Questions: Length of Stay (in days): 1 Acuity (Admit via E.D.?): Yes E.D. Visits: 1 - Answers: Total Score: 5 Risk of Readmission: Low Risk Care Management Discharge Reason for Hospitalization: Alcohol withdrawal, SI Discharge Plan: Hailey was medically cleared this morning, and was screened by [facility], who created a safety plan for her to follow in the community. CM coordinated transportation for her via [facility] private vehicle. She will follow up with her tin recovery worker, her PCP, and her discharge plan of care in the community. She is hoping to start an IOP program at [facility] for her psychiatric needs soon, and has been coordinating this with her tin recovery worker. She is happy to be going home. Patient/Family Education Needs: Review discharge instructions and safety plan from [facility], discussion of self care needs including ask me three. Services Needed at Discharge: Transportation ([facility] private vehicle) - Disposition Disposition: [facility]charge [facility]
== END 2022-09-07 16:10 | disposition home or self-care (01) | DRG 897 ==
LOC: ER 21:16 → ICU 21:38
PROVIDERS: Admitting Provider Family Medicine; Emergency Provider Physician Assistant; Visit Provider Family Medicine
DX: F10.229 Alcohol dependence with intoxication, unspecified (principal); R45.851 Suicidal ideations; F10.239 Alcohol dependence with withdrawal, unspecified; G43.109 Migraine with aura, not intractable, without status migrainosus; F17.210 Nicotine dependence, cigarettes, uncomplicated; K21.9 Gastro-esophageal reflux disease without esophagitis; Y90.8 Blood alcohol level of 240 mg/100 ml or more; T20.17XA Burn of first degree of neck, initial encounter; T22.112A Burn of first degree of left forearm, initial encounter; X08.8XXA Exposure to other specified smoke, fire and flames, initial encounter; N20.0 Calculus of kidney; F39 Unspecified mood [affective] disorder; M54.9 Dorsalgia, unspecified
CPT/HCPCS: 80053; 80307; 81025; 83690; 87635; 96361; 96365; 96375; 99291; J1650; 80320; 80329; 81003; 84443; 85025; 99239; J1885; J2560